=== PATIENT | male | born 1995 | race African-American/Black ===

== ENCOUNTER 2018-09-27 20:52 | Emergency (ER) | payer OTHER ==
[2018-09-27 21:25] VITALS: BP 129/67
[2018-09-27] MEDS ORDERED: cefTRIAXone VIAL(*) 250 MG VIAL IM ONE (21:50)
[2018-09-27] MEDS ORDERED: Azithromycin TAB* 250 MG PO ONE (21:51)
[2018-09-27] MEDS ORDERED: Lidocaine 1% MPF* 2 ML VIAL ONE (22:02)
--- NOTE | 2018-09-27 22:03 | UC ---
Complaint Male HPI - HPI Summary HPI Summary: 23 year old male presents requesting testing for STIs. States he was notified by one of his sexual partners that she tested positive for chlamydia. They had unprotected sex approximately 1 week ago. Denies fever, chills, dysuria, frequency, urgency, hematuria, penile discharge, genital sores or lesion, testicular pain or swelling. - History of Current Complaint Chief Complaint: UCGeneralIllness Stated Complaint: PERSONAL Time Seen by Provider: 09/27/18 21:38 Hx Obtained From: Patient Pain Intensity: 0 - Allergies/Home Medications Allergies/Adverse Reactions: Allergies Allergy/AdvReac Type Severity Reaction Status Date / Time No Known Allergies Allergy Verified 09/27/18 21:22 Home Medications: Home Medications NK [No Home Medications Reported] 09/27/18 [History Confirmed 09/27/18] PMH/Surg Hx/FS Hx/Imm Hx Previously Healthy: Yes - Denies significant PMH - Surgical History Surgical History: None - Family History Known Family History: Positive: Non-Contributory - Social History Occupation: Student Lives: Dormitory/Roommates Alcohol Use: Occasionally Substance Use Type: Marijuana Substance Use Comment - Amount & Last Used: OCCASIONALLY Smoking Status (MU): Never Smoked Tobacco Review of Systems All Other Systems Reviewed And Are Negative: Yes Constitutional: Negative: Fever, Chills Skin: Negative: Rash Respiratory: Positive: Negative Cardiovascular: Positive: Negative Gastrointestinal: Positive: Negative Genitourinary: Negative: Dysuria, Hematuria, Frequency, Urgency, Vaginal/Penile Burning, Vaginal/Penile Itching, Vaginal/Penile Discharge, Vaginal/Penile Pain, Vaginal/Penile Tenderness, Ulceration/Lesion Musculoskeletal: Positive: Negative Neurological: Positive: Negative Is Patient Immunocompromised?: No Physical Exam - Summary Physical Exam Summary: GENERAL APPEARANCE: Well developed, well nourished, alert and cooperative, and appears to be in no acute distress. CARDIAC: Normal S1 and S2. No S3, S4 or murmurs. Rhythm is regular. There is no peripheral edema, cyanosis or pallor. Extremities are warm and well perfused. Capillary refill is less than 2 seconds. Peripheral pulses intact. LUNGS: Clear to auscultation without rales, rhonchi, wheezing or diminished breath sounds. ABDOMEN: Positive bowel sounds. Soft, nondistended, nontender. No guarding or rebound. No masses or hepatosplenomegally. No CVA tenderness. GENITOURINARY: Normal penis. No discharge, lesions or ulcerations. No scrotal swelling. Testicles non-tender without masses. MUSKULOSKELETAL: ROM intact to all extremities. No joint erythema or tenderness. Normal muscular development. Normal gait. SKIN: Skin normal color, texture and turgor with no lesions or eruptions. Triage Information Reviewed: Yes Vital Signs: Initial Vital Signs Temp 98.1 F 09/27/18 21:23 Pulse 85 09/27/18 21:23 Resp 15 09/27/18 21:23 BP 129/67 09/27/18 21:23 Pulse Ox 100 09/27/18 21:23 Vital Signs Reviewed: Yes Complaint Male Course/Dx - Course Course Of Treatment: 23 year old male presents requesting testing for STIs. States he was notified by one of his sexual partners that she tested positive for chlamydia. They had unprotected sex approximately 1 week ago. Denies fever, chills, dysuria, frequency, urgency, hematuria, penile discharge, genital sores or lesion, testicular pain or swelling. Afebrile. VSS. Exam unremarkable. Specimens for gonorrhea and chlamydia were sent and are pending. Patient declined testing for syphilis or HIV. He was treated for possible infection with Rocephin 250 mg IM and azithromycin 1000 mg PO. He was counseled to abstain from all sexual intercourse for next 7 days, reviewed safe sex practices, and encouraged consistent condom use. He is to return here or follow up with the [facility] for any problems. - Differential Dx/Diagnosis Differential Diagnosis/HQI/PQRI: Epididymitis, Urinary Tract Infection, Other - STI Provider Diagnosis: Exposure to chlamydia Discharge - Sign-Out/Discharge Documenting (check all that apply): Patient Departure All imaging exams completed and their final reports reviewed: No Studies - Discharge Plan Condition: Stable Disposition: HOME Patient Education Materials: Chlamydia (ED), Sexually Transmitted Diseases (ED) , Condom Use (ED), Safe Sex (ED) Referrals: No Primary Care Phys,NOPCP [Primary Care Provider] - Additional Instructions: We have sent specimens to the lab to test you for gonorrhea and chlamydia. If you test positive you will need to notify all your sexual partners to be evaluated and treated. You declined testing for syphilis and HIV at this time. We have treated you with 2 different antibiotics called Rocephin and azithromycin to treat for possible infection. You should avoid any type of sexual intercourse (vaginal, oral, or anal) for the next week. Use condoms consistently in the future to avoid possible infection. [facility]. - Billing Disposition and Condition Condition: STABLE Disposition: Home
[2018-09-30 14:13] LABS: Neisseria gonorrhoeae (GC) RNA Negative (Negative)
== END 2018-09-27 22:19 | disposition home or self-care (01) ==
LOC: UCCORT 20:52
DX: Z20.2 Contact with and (suspected) exposure to infections with a predominantly sexual mode of transmission (principal)
CPT/HCPCS: 87491; 87591; 96372; 99202; A9270-GY; G0463; J0696